=== PATIENT | male | born 1960 | race African-American/Black ===

== ENCOUNTER → 2017-10-15 | Outpatient (CLI) | payer OTHER ==
[~2017-10-15] VITALS: Ht 172.7 cm; Wt 95.7 kg
[~2017-10-15] MED LIST: REGADENOSON 0.4 MG/5 ML DISP.SYRIN. IV ONE
--- NOTE | 2017-10-15 11:44 | RAD ---
APPROVED REPORT Test Type: Pharmacological Stress Nurse/Tech: EDDIE Bryan Test Indications: CAD CHEST PRESSURE Cardiac History: CABG post MS Aug 2017 Medications: see EHR Medical History: see EHR Resting ECG: SR Resting Heart Rate: 73 bpm Resting Blood Pressure: 148/78mmHg Pretest Chest Pain: None Nurse/Tech Notes Consent: The procedure was explained to the patient in lay terms. Informed consent was witnessed. Marcello eout was entered into [employer]. History and Stress Test performed by EDDIE Bryan Pharm. Details Pharmacologic stress testing was performed using 0.4mg per 5ml of regadenoson given intravenously ove r 7-10 seconds. POST EXERCISE Max HR: 108 bpm Max Blood Pressure: 130/72mmHg Blood Pressure response to exercise: Normal blood pressure response during stress. Heart Rate response to exercise: normal response INTERPRETATION Stress EKG Conclusion: The resting EKG showed a sinus rhythm, nonspecific ST-T wave changes and a sm all Q wave in lead III. The stress EKG showed no significant changes from baseline. No EKG evidence of stressed induced ischemia. Imaging Protocol IMAGE PROTOCOL: Rest Tc-99m/stress Tc-99m 1 day Rest: Stress: Viability: Radiopharm.Tc99m [id number] Sestamibi Dose11.9mCi 34.4mCi Duration 17min. 12min. Img Date 10/15/2017 10/15/2017 Inj-Img [id number]. 60min. Rest Admin Site:IV - Right AntecubitalAdministrator: EDDIE Bryan Stress Admin Site: IV - Right AntecubitalAdministrator: EDDIE Bryan STRESS DATA End Diast. Vol.136.0mlAv. Heart Rate82.0bpm LVEDV index BSA2.0mlCardiac Output0.1L/min End Syst. Vol.62.0mlCO Index BSA6.1L/min LVESV index BSA1.0mlMyocardial Jndk426.0g Eject. Jmlpenuq18.0% Stress Rates Pk. Fill Rate3.18EDV/secLVtime Pk. Fill 144.05msec Pk. Empty Rate3.46ESV/secLVtime Pk. Xcglx686.08msec 11/05 Pk. Fill1.25EDV/sec Stress Scores Regional WT0.00Summed WT18.00 Regional WM0.00Summed WM17.00 LV Perfusion The stress scans show a defect in the lateral wall. The rest scans also show a defect in the lateral wall. Nuclear imaging is consistent with a prior infarct with mild francisco-infarction ischemia. Wall Motion The left ventricle shows mild inferior wall hypokinesis with an ejection fraction of 54%. LV Perf. Quant 17 Seg. SSS10.00 17 Seg. SRS9.00 17 Seg. SDS1.00 Stress Defect Extent (% LAD)0.00Rest Defect Extent (% LAD)0.00Rev. Defect Extent (% LAD)0.00 Stress Defect Extent (% LCX) 93.80Rest Defect Extent (% LCX)71.30Rev. Defect Extent (% LCX)6.30 Stress Defect Extent (% RCA)0.00Rest Defect Extent (% RCA)0.00Rev. Defect Extent (% RCA)0.00 Stress Defect Extent (% PHILLIP)19.60Rest Defect Extent (% PHILLIP)12.40Rev. Defect Extent (% PHILLIP)3.90 Conclusion 1. No EKG evidence of stressed induced ischemia. 2. 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 3. Left ventricular systolic ejection fraction of 54% with mild inferior wall hypokinesis. 4. Moderate risk Lexiscan nuclear stress test.
== END | disposition home or self-care (01) ==
LOC: NM 07:40
PROVIDERS: ATTEND Internal Medicine Cardiovascular Disease
DX: I25.10 Atherosclerotic heart disease of native coronary artery without angina pectoris (principal); I25.82 Chronic total occlusion of coronary artery; E11.3293 Type 2 diabetes mellitus with mild nonproliferative diabetic retinopathy without macular edema, bilateral; M19.049 Primary osteoarthritis, unspecified hand; Z95.1 Presence of aortocoronary bypass graft
CPT/HCPCS: 78452; 93017; 96374; 96375; 96376; A9500; J2785